=== PATIENT | female | born 1970 | race Hispanic/Latino ===

== ENCOUNTER 2019-09-29 15:22 | Emergency (ER) | payer SELFPAY ==
[~2019-09-29] VITALS: Ht 149.9 cm; Wt 75.7 kg
[~2019-09-29 15:22] MED LIST: GLUMETZA1000 MG PO
--- NOTE | 2019-09-29 16:01 | NUR ---
Family states pts normal HR is in the 60s, was told by PCP to give metoprolol unless HR was less than 50, lst night HR was 38 after med given and c/o dizziness. Today at time med was given HR 62. Pt gave medication then when Homehealth came pts HR was in the 30's and Dr Joseph stated to go to ER. Pt denies dizziness or pain today.
[2019-09-29] MEDS ORDERED: SODIUM CHLORIDE 0.9% 1000ML 1,000 ML IV STA (16:23)
[2019-09-29] MEDS ORDERED: ONDANSETRON HCL INJ 2MG/ML 2ML 2 MG/ML VIAL IV STA (16:23)
[2019-09-29] MEDS ORDERED: SODIUM CHLORIDE 0.9% 1000ML 1,000 ML ONE (16:47)
[2019-09-29] MEDS ORDERED: ONDANSETRON HCL INJ 2MG/ML 2ML 2 MG/ML VIAL ONE (16:47)
[2019-09-29] MEDS ORDERED: KETOROLAC TROMETHAMINE 30 MG/ML VIAL IV STA (16:48)
[2019-09-29] MEDS ORDERED: KETOROLAC TROMETHAMINE 30 MG/ML VIAL ONE (17:57)
[2019-09-29] MEDS ORDERED: INSULIN REGULAR, HUMAN 100 UNIT/1 ML 3ML VIAL ONE (17:59)
[2019-09-29] MEDS ORDERED: INSULIN REGULAR, HUMAN 100 UNIT/1 ML 3ML VIAL IV ONE (18:00)
[2019-09-29] MEDS ORDERED: CEFTRIAXONE SOD 1 GM VIAL IV ONE (18:00)
[2019-09-29] MEDS ORDERED: CEFTRIAXONE SOD 1 GM/NS 50 ML 50 ML IV ONE ×2 (18:09→18:15)
--- NOTE | 2019-09-29 18:43 | Emergency Department Note ---
History of Present Illnes History of Present Illness Chief Complaint: Headache History of Present Illness This is a 49 year old female . Chief Complaint Comment TESTED COVID + ON August, PT STATES PARRISH FOR 2 WEEKS AND ALSO VOMING TODAY,PATIENT HAS HAD ABD CT 3 DAYS AGO SHOWED GALL STONES Historian: Patient Arrival Mode: Car Onset (how long ago): day(s) (2) Location: EPIGASTRIC Quality: DULL Radiation: Reports non-radiation, Reports back, Reports neck, Reports extremity, Reports abdomen, Reports periumbilical, Reports flank, Reports proximal, Reports distal, Reports other Severity: moderate Onset quality: gradual Duration (how long): day(s) (2) Timing of current episode: constant Progression: waxing and waning Chronicity: new Context: Denies recent illness, Denies recent surgery, Denies recent immobilization, Denies recent travel, Denies trauma/injury, Denies new medications, Denies hx of DVT/PE, Denies non-compliance w/ medications, Denies other Relieving factors: none Exacerbating factors: none Associated symptoms: Reports denies other symptoms Treatments prior to arrival: none Past Medical/Family History Physician Review I have reviewed the patient's past medical and family history. Any updates have been documented here. Past Medical History Recent Fever: No Clinical Suspicion of Infectio: No New/Unexplained Change in Ment: No Other Surgery: Social History Smoking Cessation: Never Smoker Alcohol Use: Social Other Last Tetanus: UNK Review of Systems Review of Systems Constitutional: Reports no symptoms EENTM: Reports no symptoms Cardiovascular: Reports no symptoms Respiratory: Reports no symptoms Gastrointestinal: Reports as per HPI Genitourinary: Reports no symptoms Musculoskeletal: Reports no symptoms Integumentary: Reports no symptoms Neurological: Reports no symptoms Psychological: Reports no symptoms Endocrine: Reports no symptoms Hematological/Lymphatic: Reports no symptoms Physical Exam Related Data Allergies: Coded Allergies: No Known Allergies (Unverified , 12/13/12) Triage Vital Signs Vital Signs Date Time Temp Pulse Resp B/P (MAP) Pulse Ox O2 Delivery O2 Flow Rate FiO2 09/29/19 16:10 98.4 81 18 174/87 100 Vital signs reviewed: Yes Physical Exam CONSTITUTIONAL Constitutional: Present well-developed, Present well-nourished HENT HENT: Present normocephalic, Present atraumatic, Present oropharynx clear/moist, Present nose normal HENT L/R: Present left ext ear normal, Present right ext ear normal EYES Eyes: Reports PERRL, Reports conjunctivae normal NECK Neck: Present ROM normal PULMONARY Pulmonary: Present effort normal, Present breath sounds normal CARDIOVASCULAR Cardiovascular: Present regular rhythm, Present heart sounds normal, Present c apillary refill normal, Present normal rate GASTROINTESTINAL Abdominal: Present soft, Present nontender (EPIGASTRIC), Present bowel sounds normal, Present tender GENITOURINARY Genitourinary: Present exam deferred SKIN Skin: Present warm, Present dry MUSCULOSKELETAL Musculoskeletal: Present ROM normal NEUROLOGICAL Neurological: Present alert, Present oriented x 3, Present no gross motor or sensory deficits PSYCHOLOGICAL Psychological: Present mood/affect normal, Present judgement normal Results Laboratory Lab results reviewed: Yes Imaging Imaging results reviewed: Yes Assessment & Plan Medical Decision Making MDM GASTRITIS GALL STONES Reassessment Reassessment BETTER Assessment & Plan Final Impression: (1) Abdominal pain, acute, epigastric (2) Hyperglycemia (3) UTI (urinary tract infection) Depart Disposition: HOME, SELF-CARE Last Vital Signs Date Time Temp Pulse Resp B/P (MAP) Pulse Ox O2 Delivery O2 Flow Rate FiO2 09/29/19 16:10 98.4 81 18 174/87 100 Home Meds Reported Medications Metformin Hcl (GLUMETZA) 1,000 Mg [id number], 1000 MG PO BID 12/13/12 Medications in the ED Ondansetron HCl 4 mg NOW STAT IV Last administered on 09/29/19at 16:46; Admin Dose 4 MG; Start 09/29/19 at 16:23; Stop 09/29/19 at 16:32; Status DC Sodium Chloride 1,000 ml @ 0 mls/hr Q0M STAT IV Last administered on 09/29/19at 16:46; Admin Dose 999 MLS/HR; Start 09/29/19 at 16:23; Stop 09/29/19 at 16:25; Status DC Ondansetron HCl 4 mg STK-MED ONCE .ROUTE ; Start 09/29/19 at 16:47; Stop 09/29/19 at 16:43; Status DC Sodium Chloride 1,000 ml @ ud STK-MED ONCE .ROUTE ; Start 09/29/19 at 16:47; Stop 09/29/19 at 16:43; Status DC Ketorolac Tromethamine 15 mg ONCE STAT IV Last administered on 09/29/19at 17:58; Admin Dose 15 MG; Start 09/29/19 at 16:48; Stop 09/29/19 at 16:54; Status DC Ceftriaxone Sodium 1 gm ONCE ONCE IV ; Start 09/29/19 at 18:00; Stop 09/29/19 at 18:01; Status UNV Insulin Human Regular 5 unit ONCE ONCE IV Last administered on 09/29/19at 17:59; Admin Dose 5 UNIT; Start 09/29/19 at 18:00; Stop 09/29/19 at 18:01; Status DC Ketorolac Tromethamine 30 mg STK-MED ONCE .ROUTE ; Start 09/29/19 at 17:57; Stop 09/29/19 at 17:53; Status DC Insulin Human Regular 100 unit STK-MED ONCE .ROUTE ; Start 09/29/19 at 17:59; Stop 09/29/19 at 17:53; Status DC Ceftriaxone Sodium 50 ml @ 100 mls/hr ONCE ONCE IV ; Start 09/29/19 at 18:15; Stop 09/29/19 at 18:44 Ceftriaxone Sodium 50 ml @ ud STK-MED ONCE IV ; Start 09/29/19 at 18:09; Stop 09/29/19 at 18:06; Status DC NANNETTE DRUMMOND MD Sep 29, 2019 18:42
[2019-09-29 18:53] VITALS: BP 151/83
== END 2019-09-29 19:03 | disposition home or self-care (01) ==
LOC: FSED 15:22
DX: R10.13 Epigastric pain (principal); N39.0 Urinary tract infection, site not specified; E11.65 Type 2 diabetes mellitus with hyperglycemia; R51 Headache
CPT/HCPCS: 80053; 81003; 81025; 99283; J0696; J1817; J1885; J2405; J7030; 36415; 82948